=== PATIENT | male | born 1950 | race Caucasian/White ===

== ENCOUNTER → 2020-11-28 05:13 | Outpatient (CLI) | payer BC, SELFPAY ==
[2020-11-28 21:09] LABS: SARS-CoV-2 RNA PCR Negative
== END ==
PROVIDERS: PCP Family Medicine Adolescent Medicine; Visit Provider Physician Assistant
DX: R05 Cough (principal); J02.9 Acute pharyngitis, unspecified; R50.9 Fever, unspecified; Z20.822 Contact with and (suspected) exposure to COVID-19
CPT/HCPCS: C9803; U0003; U0005